=== PATIENT | male | born 1960 | race Caucasian/White ===

== ENCOUNTER 2019-09-01 10:14 | Inpatient (IN) | payer BC ==
--- NOTE | 2019-09-01 10:36 | PDOC ---
History of Present Illness - General Chief Complaint: Respiratory Stated Complaint: SHORT OF BREATH Time Seen by Provider: 09/01/19 10:26 History Source: Patient Exam Limitations: No Limitations - History of Present Illness Initial Comments: 59 year old male with PMH HTN, HLD, nicotine use, obesity presented to ED for increasing SOB, ESTRADA x2 weeks. Pt reported he walks a lot at work and over the last two weeks he feels short of breath while walking uphill or up stairs. He also reported increasing pedal edema and abdominal distension since yesterday. He denied chest pain, palpitations, back pain, abdominal pain, lightheadedness, syncope, fever, productive cough. 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 ROS General: denied fever, chills, generalized weakness. HEENT: denied sore throat, rhinorrhea, ear pain. Cardiovascular: denied chest pain, palpitations, syncope, diaphoresis. Respiratory: admitted to shortness of breath, ESTRADA. denied cough, sputum production, hemoptysis. Gastrointestinal: denied abdominal pain, nausea, vomiting, diarrhea, constipation, blood in stool. Genitourinary: denied dysuria, increased urinary frequency, hematuria, urinary incontinence, flank pain. Back: denied back pain. Musculoskeletal: denied joint pain, muscle pain, joint swelling. Neurological: denied headache, dizziness, numbness, tingling, weakness. Integumentary: denied rash, laceration, abrasion. Hematologic/Lymphatic: denied bruising or bleeding. PE Constitutional: Well-nourished, Well-developed, appearing stated age. HEENT: head is normocephalic, atraumatic. EOMI. PERRLA. Neck: supple. Full ROM. Cardiovascular: regular heart rhythm. no murmurs. no pericardial friction rub. Respiratory: clear to auscultation bilaterally, but decreased breath sounds on the right. no crackles, rhonchi or wheezing. no stridor. Gastrointestinal: soft, nontender. normal bowel sounds. no rebound, guarding, masses. Extremities: peripheral pulses intact. nonpitting edema to bilateral feet. Neurological: CN 2-12 grossly intact. moves all four extremities. Psych: awake, alert, oriented x3. follows commands. answers questions appropriately. Past History - Past Medical History Allergies/Adverse Reactions: Allergies Allergy/AdvReac Type Severity Reaction Status Date / Time No Known Allergies Allergy Unverified 09/01/19 10:22 Home Medications: Ambulatory Orders Atorvastatin Ca [Lipitor] 40 mg PO DAILY 09/01/19 Lisinopril 10 mg PO DAILY 09/01/19 Metformin HCl [Glucophage] 1,000 mg PO BID 09/01/19 Metoprolol Succinate [Toprol Xl] 25 mg PO DAILY 09/01/19 ED Treatment Course - LABORATORY CBC & Chemistry Diagram: 09/01/19 11:00 09/01/19 11:00 - RADIOLOGY Radiology Studies Ordered: Category Date Time Status CHEST PA & LAT [RAD] Stat Radiology 09/01/19 10:32 Ordered Medical Decision Making - Medical Decision Making 59 year old male with above PMH presented to ED for increased SOB/ESTRADA x2 weeks. Initial Vital Signs Temp Pulse Resp BP Pulse Ox 98.3 F 77 22 H 199/123 H 91 L 09/01/19 10:20 09/01/19 10:20 09/01/19 10:20 09/01/19 10:20 09/01/19 10:20 Afebrile. No tachycardia. Tachypnea. Hypertensive. Hypoxia on room air. -Pt returned to 97% on 3L nasal cannula Labs ordered: CBC, CMP, BNP Imaging ordered: CXR, duplex US bilateral LE Medications ordered: ASA 162 mg PO chew once EKG performed at 1051: rate 68, regular rhythm, normal axis, normal intervals, QTC 459, flipped Ts laterally, flat T inferiorly. -No prior to compare 09/01/19 11:37 CXR report: Name: NAGA KAHN DEPARTMENT OF RADIOLOGY Phys: Macey Ruiz RESIDENT : [id number] Age: 59 Sex: M [facility] Acct: [id number] Loc: [address] Exam Date: 09/01/19 Status: [place] [address] Unit Number: [id number] EXAM #: TYPE/EXAM: RESULT: [id number] RAD/CHEST PA LAT Chest: Shortness of breath. Fluid overload. 2 views the chest reveal a weak inspiration with some congestive changes, fluid in the horizontal fissure and bibasilar atelectatic/ infiltrative findings. There is a prominent mediastinum. There are degenerative changes with wedging. Correlation recommended. Reported By: Yfn Ortega MD 09/01/19 1117 Vital Signs Temperature 98.3 F 09/01/19 10:20 Pulse Rate 68 09/01/19 11:30 Respiratory Rate 28 H 09/01/19 11:30 Blood Pressure 176/140 H 09/01/19 11:30 O2 Sat by Pulse Oximetry (%) 98 09/01/19 11:30 Hypertension improved, but still high. Laboratory Last Values WBC 7.7 K/mm3 (4.0-10.8) 09/01/19 11:00 RBC 4.17 M/mm3 (4.00-5.60) 09/01/19 11:00 Hgb 12.9 GM/dl (11.7-16.9) 09/01/19 11:00 Hct 40.0 % (35.4-49) 09/01/19 11:00 MCV 96.1 fl (80-96) H 09/01/19 11:00 MCH 31.0 pg (25.7-33.7) 09/01/19 11:00 MCHC 32.3 g/dl (32.0-35.9) 09/01/19 11:00 RDW 15.2 % (11.9-15.9) 09/01/19 11:00 Plt Count 291 K/MM3 (134-434) 09/01/19 11:00 MPV 7.9 fl (7.5-11.1) 09/01/19 11:00 Absolute Neuts (auto) 5.5 K/mm3 09/01/19 11:00 Neutrophils % 70.3 % (42.8-82.8) 09/01/19 11:00 Lymphocytes % 19.9 % (8-40) 09/01/19 11:00 Monocytes % 8.0 % (3.8-10.2) 09/01/19 11:00 Eosinophils % 1.4 % (0-4.5) 09/01/19 11:00 Basophils % 0.4 % (0-2.0) 09/01/19 11:00 Sodium 138 mmol/L (136-145) 09/01/19 11:00 Potassium 4.3 mmol/L (3.5-5.1) 09/01/19 11:00 Chloride 104 mmol/L (98-107) 09/01/19 11:00 Carbon Dioxide 27 mmol/L (21-32) 09/01/19 11:00 Anion Gap 7 MMOL/L (8-16) L 09/01/19 11:00 BUN 35.0 mg/dl (7-18) H 09/01/19 11:00 Creatinine 1.2 mg/dl (0.55-1.3) 09/01/19 11:00 Est GFR (CKD-EPI)AfAm 76.25 09/01/19 11:00 Est GFR (CKD-EPI)NonAf 65.79 09/01/19 11:00 Random Glucose 118 mg/dl (74-106) H 09/01/19 11:00 Calcium 9.0 mg/dl (8.5-10) 09/01/19 11:00 Total Bilirubin 0.6 mg/dl (0.2-1) 09/01/19 11:00 AST 27 U/L (15-37) 09/01/19 11:00 ALT 29 U/L (13-61) 09/01/19 11:00 Alkaline Phosphatase 73 U/L (45-117) 09/01/19 11:00 Creatine Kinase 222 U/L (26-308) 09/01/19 11:00 Troponin I 0.03 ng/ml (0.00-0.05) 09/01/19 11:00 Total Protein 7.3 g/dl (6.4-8.2) 09/01/19 11:00 Albumin 3.2 g/dl (3.4-5.0) L 09/01/19 11:00 Medications ordered: Nitro 0.4 SL once, duoneb x1 -Will give Lasix after repeating BP 09/01/19 12:03 Results explained to patient, advised to be admitted for new onset-CHF. Pt agreed with plan for care. PCP Kaitlin lucero, covered by Dr. Felix. 09/01/19 12:[address] Felix, who agreed with plan for care he advised giving Lasix 40 mg IV once if BP tolerates Nitro. He requested Dr. Alan Cardiology consult. Pending admission. 09/01/19 13:[address] Leoncio Huizar [facility], who reported he prefers the pt to be at [facility]. Will update Dr. Felix. 09/01/19 15:52 US report negative for bilateral DVT. Discharge - Discharge Information Problems reviewed: Yes Clinical Impression/Diagnosis: New onset of congestive heart failure, ESTRADA (dyspnea on exertion), ST segment changes on electrocardiogram Condition: Guarded - Admission Yes - Follow up/Referral Referrals: Clarissa Madrigal MD [Primary Care Provider] - - Patient Discharge Instructions - Post Discharge Activity
[2019-09-01 11:24] LABS: BASO % 0.4 % (0-2.0); EOS % 1.4 % (0-4.5); HEMOGLOBIN 12.9 GM/dl (11.7-16.9); LYMPH % 19.9 % (8-40); MCHC 32.3 g/dl (32.0-35.9); MEAN CELL VOLUME 96.1 fl (80-96); MEAN PLT VOLUME 7.9 fl (7.5-11.1); NEUT % 70.3 % (42.8-82.8); PLATELET COUNT 291 K/MM3 (134-434); RBC 4.17 M/mm3 (4.00-5.60); RDW 15.2 % (11.9-15.9); WHITE BLOOD COUNT 7.7 K/mm3 (4.0-10.8)
[2019-09-01 11:32] LABS: ALBUMIN 3.2 g/dl (3.4-5.0); BILIRUBIN,TOTAL 0.6 mg/dl (0.2-1); CREATININE 1.2 mg/dl (0.55-1.3); POTASSIUM 4.3 mmol/L (3.5-5.1); TOT PROT 7.3 g/dl (6.4-8.2)
[2019-09-01] MEDS ORDERED: ASPIRIN 81 MG CHEWABLE TABLETS PO ONE (11:34)
--- NOTE | 2019-09-01 11:34 | PDOC ---
Attending Attestation - Resident Resident Name: JosephMarquitaa - ED Attending Attestation I have performed the following: I have examined & evaluated the patient, The case was reviewed & discussed with the resident, I agree w/resident's findings & plan - HPI HPI: 09/01/19 11:30 59-year-old male history of hypertension hyperlipidemia obesity and tobacco use here today complaining of exertional dyspnea and shortness of breath for the last 3 to 4 days. Patient states he did recently have an echo that showed decreased EF however is uncertain of the severity. He follows with Dr. 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 States that his shortness of breath is worse with walking and going upstairs. He denies any chest pain or chest pressure. No history of PE or DVT. No cough fevers chills or leg pain. States that he does have to prop himself up on several pillows to sleep at night - Physicial Exam PE: 09/01/19 11:33 Patient is awake alert is hypoxic on room air appears pale lungs are with decreased breath sounds on the right up to the midlung field posteriorly. There is faint crackles and decreased airflow at the left base. Heart is regular with any murmurs rubs or gallops. Abdomen is soft nontender obese extremities are warm and well-perfused there is bilateral nonpitting edema 2+ DP PT pulses bilaterally. - Medical Decision Making 09/01/19 11:33 Differential diagnosis includes CHF exacerbation, anemia, renal failure, pleural effusion, or other infectious cause. COPD plan chest x-ray EKG troponin BNP due to suspected CHF exacerbation and possible pleural effusion patient will likely require admission to telemetry will discuss with Dr. GARDNER 09/01/19 13:41 pt with elevated BNP. congestive changes on cxr. ekg with TWI v4 - v6. I, AVL. no old EKG for comparison. will require admission. given ntg for elevated bp, chf. will liklely require lasix. aspirin. d/w dr conner for admission. 09/01/19 15:52 pt improved with nitro, bp improved. will given lasix 20 ivp, doppler legs negative. BNP elevated. trop negative. Heart Score/ECG Review #1 ECG reviewed & interpreted by me at: 15:53 General ECG Interpretation: Sinus Rhythm, Normal Rate, Normal Intervals Compared to previous ECG there are: Other (TWI v5/ v6)
[2019-09-01] MEDS ORDERED: ALBUTEROL SO4 2.5/IPRATROPIUM 0.5 INH SOL 3 ML VIAL.NEB. NEB ONE ×2 (11:48→12:22)
[2019-09-01] MEDS ORDERED: NITROGLYCERIN SUBLINGUAL 1/200 0.3 MG BTL SL ONE (11:48)
[2019-09-01] MEDS ORDERED: NITROGLYCERIN SUBLINGUAL 1/150 0.4 MG TAB ONE (12:21)
[2019-09-01] MEDS ORDERED: NITROGLYCERIN SUBLINGUAL 1/150 0.4 MG TAB SL ONE (12:21)
[2019-09-01] MEDS ORDERED: ASPIRIN 81 MG CHEWABLE TABLETS ONE (12:22)
[2019-09-01] MEDS ORDERED: LISINOPRIL 10 MG TABLET (FP) PO SCH (13:45)
[2019-09-01] MEDS: metoPROLOL SUCCINATE 25 MG TAB.SR.24H (FP) PO SCH (14:15)
[2019-09-01] MEDS: FUROSEMIDE 40 MG/4 ML INJECTABLE VIAL IVPUSH SCH (14:15)
[2019-09-01] MEDS ORDERED: FUROSEMIDE 40 MG/4 ML INJECTABLE VIAL ONE (14:15)
[2019-09-01] MEDS ORDERED: metoPROLOL SUCCINATE 25 MG TAB.SR.24H (FP) ONE (14:16)
[2019-09-01] MEDS ORDERED: LISINOPRIL 5 MG TABLET (FP) ONE (14:16)
--- NOTE | 2019-09-01 16:23 | CON.PULM ---
Consult Consult Specialty:: PULMONARY Referred by:: PMD Reason for Consultation:: SOB - History of Present Illness Chief Complaint: SOB History of Present Illness: 59 year old male with PMH HTN, HLD,DM2, nicotine use, obesity presents to ED for increasing SOB, ESTRADA x2 weeks. Pt reported he walks a lot at work and over the last two weeks he feels short of breath while walking uphill or up stairs. He also reported increasing pedal edema and abdominal distension since yesterday. He denied chest pain, palpitations, back pain, abdominal pain, lightheadedness, syncope, fever, productive cough. 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 No: Deep Vein Thrombosis, [place] Pulmonary: Yes: COPD. No: Asthma Gastrointestinal: No: Ascites Hepatobiliary: No: Cirrhosis Renal/: No: Renal Failure Heme/Onc: No: Anemia Endocrine: Yes: Diabetes Insipidus - Alcohol/Substance Use Hx Alcohol Use: Yes (OCCASIONAL) - Smoking History Smoking history: Former smoker Have you smoked in the past 12 months: Yes If you are a former smoker, when did you quit?: MAY 2019 Home Medications - Allergies Allergies/Adverse Reactions: Allergies Allergy/AdvReac Type Severity Reaction Status Date / Time No Known Allergies Allergy Unverified 09/01/19 10:22 - Home Medications Home Medications: Ambulatory Orders Atorvastatin Ca [Lipitor] 40 mg PO DAILY 09/01/19 Lisinopril 10 mg PO DAILY 09/01/19 Metformin HCl [Glucophage] 1,000 mg PO BID 09/01/19 Metoprolol Succinate [Toprol Xl] 25 mg PO DAILY 09/01/19 Family Medical History Family History: Unremarkable Review of Systems - Review of Systems Constitutional: denies: Fever Eyes: denies: Blurred Vision HENT: denies: Difficult Swallowing Neck: denies: Decreased ROM Cardiovascular: reports: Shortness of Breath. denies: Chest Pain, Palpitations Respiratory: reports: Cough, Exercise Intolerance, Orthopnea, SOB on Exertion, Wheezing, Other. denies: Hemoptysis Gastrointestinal: denies: Abdominal Pain Genitourinary: denies: Burning Breasts: reports: No Symptoms Reported Musculoskeletal: reports: No Symptoms Physical Exam Vital Sings: Vital Signs Temperature 98.3 F 09/01/19 10:20 Pulse Rate 72 09/01/19 13:00 Respiratory Rate 22 H 09/01/19 13:00 Blood Pressure 170/152 H 09/01/19 13:00 O2 Sat by Pulse Oximetry (%) 96 09/01/19 13:00 Constitutional: Yes: Calm Eyes: Yes: EOM Intact HENT: Yes: Normocephalic Neck: Yes: Trachea Midline Cardiovascular: Yes: Regular Rate and Rhythm, S1, S2 Respiratory: Yes: Diminished, Dullness Gastrointestinal: Yes: Normal Bowel Sounds, Abdomen, Obese Edema: LLE: 2+, RLE: 2+ Neurological: Yes: Alert Labs: CBC, BMP 09/01/19 11:00 09/01/19 11:00 reviewed all meds Imaging - Results Chest X-ray: Report Reviewed, Image Reviewed Ultrasound: Report Reviewed Problem List - Problems (1) Diabetes Code(s): E11.9 - TYPE 2 DIABETES MELLITUS WITHOUT COMPLICATIONS (2) ESTRADA (dyspnea on exertion) Code(s): R06.09 - OTHER FORMS OF DYSPNEA (3) New onset of congestive heart failure Code(s): I50.9 - HEART FAILURE, UNSPECIFIED (4) ST segment changes on electrocardiogram Code(s): R94.31 - ABNORMAL ELECTROCARDIOGRAM [ECG] [EKG] (5) Hypertensive urgency Code(s): I16.0 - HYPERTENSIVE URGENCY (6) Hyperlipidemia Code(s): E78.5 - HYPERLIPIDEMIA, UNSPECIFIED Assessment/Plan PROGRESSIVE CHF WITH HYPERTENSIVE URGENCY DM2/HDL LIKELY COPD 2/2 CIGARETTE SMOKING BUT NOT IN EXACERBATION O2/DIURETICS/BP CONTROL/TELE MONITORING/CARDIO CONSULT CONTINUE NIC/B-STAS CHECK ECHO SERIAL EKG'S AND ENZYMES IF CONDITION WORSENS WOULD TRANSFER TO [facility] Doris BALLARD MD
[2019-09-01 16:39] VITALS: BMI 35.6
[2019-09-01] MEDS: INSULIN SLIDING SCALE (NOVOLOG) 1 VIAL SQ SCH ×2 (16:52→21:33)
--- NOTE | 2019-09-01 17:53 | HP ---
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 No: Deep Vein Thrombosis, [place] Pulmonary: Yes: COPD. No: Asthma Gastrointestinal: No: Ascites Hepatobiliary: No: Cirrhosis Renal/: No: Renal Failure Heme/Onc: No: Anemia Endocrine: Yes: Diabetes Mellitus - Smoking History Smoking history: Former smoker Have you smoked in the past 12 months: Yes If you are a former smoker, when did you quit?: MAY 2019 - Alcohol/Substance Use Hx Alcohol Use: Yes (OCCASIONAL) Home Medications - Allergies Allergies/Adverse Reactions: Allergies Allergy/AdvReac Type Severity Reaction Status Date / Time No Known Allergies Allergy Unverified 09/01/19 10:22 - Home Medications Home Medications: Ambulatory Orders Atorvastatin Ca [Lipitor] 40 mg PO DAILY 09/01/19 Lisinopril 10 mg PO DAILY 09/01/19 Metformin HCl [Glucophage] 1,000 mg PO BID 09/01/19 Metoprolol Succinate [Toprol Xl] 25 mg PO DAILY 09/01/19 Review of Systems - Review of Systems Cardiovascular: reports: Chest Pain, Shortness of Breath Respiratory: reports: SOB, SOB on Exertion Gastrointestinal: reports: No Symptoms Genitourinary: reports: No Symptoms Breasts: reports: No Symptoms Reported Musculoskeletal: reports: No Symptoms Neurological: reports: No Symptoms Physical Examination Vital Signs: Vital Signs Temperature 97.7 F 09/01/19 16:27 Pulse Rate 64 09/01/19 16:27 Respiratory Rate 20 09/01/19 16:27 Blood Pressure 161/89 09/01/19 16:27 O2 Sat by Pulse Oximetry (%) 99 09/01/19 16:27 Cardiovascular: Yes: Regular Rate and Rhythm Respiratory: Yes: On Nasal O2, Rales Gastrointestinal: Yes: Normal Bowel Sounds, Soft. No: Tenderness Edema: Yes Labs: CBC, BMP 09/01/19 11:00 09/01/19 11:00 Imaging - Results X-ray: Report Reviewed Problem List - Problems (1) CHF (congestive heart failure) Assessment/Plan: -FOLLOW LABS,CXR -LASIX IV BID -CARDIOLOGY CONSULT Code(s): I50.9 - HEART FAILURE, UNSPECIFIED (2) ESTRADA (dyspnea on exertion) Assessment/Plan: ABOVE STRESS TEST PRIOR TO DC CT CHEST PULM CONSULT Code(s): R06.09 - OTHER FORMS OF DYSPNEA (3) Diabetes Assessment/Plan: BGM A1C Code(s): E11.9 - TYPE 2 DIABETES MELLITUS WITHOUT COMPLICATIONS (4) Hypertensive urgency Assessment/Plan: ADJUST MEDS AND MONITOR Code(s): I16.0 - HYPERTENSIVE URGENCY
[2019-09-01] MEDS: HEPARIN NA (PORCINE) 5,000 UNITS/ML 1ML VIAL SQ SCH (18:33)
[2019-09-01] MEDS: ATORVASTATIN CA 40 MG TABLET (FP) PO SCH (21:33)
[2019-09-02] MEDS: HEPARIN NA (PORCINE) 5,000 UNITS/ML 1ML VIAL SQ SCH ×3 (01:27→18:09)
[2019-09-02] MEDS: FUROSEMIDE 40 MG/4 ML INJECTABLE VIAL IVPUSH SCH ×2 (06:18→13:29)
[2019-09-02] MEDS: INSULIN SLIDING SCALE (NOVOLOG) 1 VIAL SQ SCH ×4 (06:18→21:16)
--- NOTE | 2019-09-02 07:27 | PN ---
Progress Note, Physician - Current Medication List Current Medications: Active Medications Atorvastatin Calcium (Lipitor -) 40 mg PO HS RAISA Last Admin: 09/01/19 21:33 Dose: 40 mg Furosemide (Lasix Injection -) 40 mg IVPUSH BIDLASIX RAISA Last Admin: 09/02/19 06:18 Dose: 40 mg Heparin Sodium (Porcine) (Heparin -) 5,000 unit SQ Q8H-IV RAISA Last Admin: 09/02/19 01:27 Dose: 5,000 unit Insulin Aspart (Novolog Vial Sliding Scale -) 1 vial SQ ACHS [facility]; Protocol Last Admin: 09/02/19 06:18 Dose: Not Given Lisinopril (Prinivil) 20 mg PO DAILY [facility] Metoprolol Succinate (Toprol Xl -) 25 mg PO DAILY [facility] Last Admin: 09/01/19 14:15 Dose: 25 mg - Objective Vital Signs: Vital Signs Temperature 98.3 F 09/02/19 05:00 Pulse Rate 59 L 09/02/19 05:00 Respiratory Rate 20 09/02/19 05:00 Blood Pressure 140/80 09/02/19 05:00 O2 Sat by Pulse Oximetry (%) 99 09/02/19 05:00 Cardiovascular: Yes: S1, S2 Respiratory: Yes: Diminished, On Nasal O2, Rales Gastrointestinal: Yes: Normal Bowel Sounds, Soft Edema: LLE: Trace, RLE: Trace Labs: CBC, BMP 09/01/19 11:00 09/01/19 11:00 Problem List - Problems (1) CHF (congestive heart failure) Assessment/Plan: -FOLLOW LABS CT NOTED--EFFUSION -LASIX IV BID -CARDIOLOGY CONSULT -ECHO Code(s): I50.9 - HEART FAILURE, UNSPECIFIED (2) ESTRADA (dyspnea on exertion) Assessment/Plan: ABOVE STRESS TEST PRIOR TO DC CT CHEST--EFFUSION-ATELECTASIS NEBS PULM CONSULT Code(s): R06.09 - OTHER FORMS OF DYSPNEA (3) Diabetes Assessment/Plan: BGM A1C Code(s): E11.9 - TYPE 2 DIABETES MELLITUS WITHOUT COMPLICATIONS (4) Hypertensive urgency Assessment/Plan: ADJUST MEDS AND MONITOR Selected Entries 09/01/19 09/01/19 09/01/19 10:20 16:27 18:41 Blood Pressure 199/123 H 161/89 143/78 09/02/19 09/02/19 05:00 07:54 Blood Pressure 140/80 130/76 Code(s): I16.0 - HYPERTENSIVE URGENCY (5) Pleural effusion Assessment/Plan: DIURETICS FOLLOW UP IMAGING Code(s): J90 - PLEURAL EFFUSION, NOT ELSEWHERE CLASSIFIED
[2019-09-02 08:29] LABS: EOS % 2.9 % (0-4.5); HEMATOCRIT 34.7 % (35.4-49); LYMPH % 16.9 % (8-40); MCH 32.8 pg (25.7-33.7); MCHC 34.6 g/dl (32.0-35.9); MEAN CELL VOLUME 94.9 fl (80-96); MEAN PLT VOLUME 8.2 fl (7.5-11.1); MONO % 9.8 % (3.8-10.2); NEUT % 69.4 % (42.8-82.8); PLATELET COUNT 248 K/MM3 (134-434); RBC 3.66 M/mm3 (4.00-5.60); RDW 14.8 % (11.9-15.9); WHITE BLOOD COUNT 8.3 K/mm3 (4.0-10.8)
[2019-09-02 08:33] LABS: ALBUMIN 2.9 g/dl (3.4-5.0); BILIRUBIN,TOTAL 0.8 mg/dl (0.2-1); CALCIUM 8.9 mg/dl (8.5-10); CREATININE 1.4 mg/dl (0.55-1.3); MAGNESIUM 1.7 mg/dL (1.8-2.4); POTASSIUM 4.8 mmol/L (3.5-5.1); TOT PROT 6.9 g/dl (6.4-8.2)
[2019-09-02] MEDS: LISINOPRIL 20 MG TABLET (FP) PO SCH (09:22)
[2019-09-02] MEDS: metoPROLOL SUCCINATE 25 MG TAB.SR.24H (FP) PO SCH (09:22)
--- NOTE | 2019-09-02 10:58 | PN ---
Progress Note (short form) - Note Progress Note: PULMONARY SUBJECTIVE IMPROVEMENT 130/76 AFEBRILE HR 60 ANICTERIC DIMINISHED BREATH SOUNDS AT BASES S1S2 BS+ LESS EDEMA LABS/MEDS/NOTES/IMAGES REVIEWED - Problems (1) Diabetes Code(s): E11.9 - TYPE 2 DIABETES MELLITUS WITHOUT COMPLICATIONS (2) ESTRADA (dyspnea on exertion) Code(s): R06.09 - OTHER FORMS OF DYSPNEA (3) New onset of congestive heart failure Code(s): I50.9 - HEART FAILURE, UNSPECIFIED (4) ST segment changes on electrocardiogram Code(s): R94.31 - ABNORMAL ELECTROCARDIOGRAM [ECG] [EKG] (5) Hypertensive urgency Code(s): I16.0 - HYPERTENSIVE URGENCY (6) Hyperlipidemia Code(s): E78.5 - HYPERLIPIDEMIA, UNSPECIFIED Assessment/Plan PROGRESSIVE CHF WITH HYPERTENSIVE URGENCY RESOLVING DM2/HDL LIKELY COPD 2/2 CIGARETTE SMOKING BUT NOT IN EXACERBATION O2/DIURETICS/BP CONTROL/TELE MONITORING/CARDIO CONSULT CONTINUE NIC/B-STAS CHECK ECHO SERIAL EKG'S AND ENZYMES R NELLIE MOLINA Problem List - Problems (1) Diabetes Code(s): E11.9 - TYPE 2 DIABETES MELLITUS WITHOUT COMPLICATIONS (2) ESTRADA (dyspnea on exertion) Code(s): R06.09 - OTHER FORMS OF DYSPNEA (3) New onset of congestive heart failure Code(s): I50.9 - HEART FAILURE, UNSPECIFIED (4) ST segment changes on electrocardiogram Code(s): R94.31 - ABNORMAL ELECTROCARDIOGRAM [ECG] [EKG] (5) Hypertensive urgency Code(s): I16.0 - HYPERTENSIVE URGENCY (6) Hyperlipidemia Code(s): E78.5 - HYPERLIPIDEMIA, UNSPECIFIED
[2019-09-02] MEDS: ALBUTEROL SO4 2.5/IPRATROPIUM 0.5 INH SOL 3 ML VIAL.NEB. NEB SCH ×3 (12:00→19:56)
--- NOTE | 2019-09-02 13:35 | EKG ---
Test Reason : Blood Pressure : / mmHG Vent. Rate : 058 BPM Atrial Rate : 058 BPM P-R Int : 174 ms QRS Dur : 104 ms QT Int : 418 ms P-R-T Axes : 059 023 215 degrees QTc Int : 410 ms SINUS BRADYCARDIA NONSPECIFIC ST ABNORMALITY ABNORMAL ECG Confirmed by ANIKA GANDHI MD ([id number]) on 09/02/2019 1:34:39 PM Referred By: MD HARVEY Confirmed By:ANIKA GANDHI MD
--- NOTE | 2019-09-02 13:38 | EKG ---
Test Reason : Blood Pressure : / mmHG Vent. Rate : 068 BPM Atrial Rate : 068 BPM P-R Int : 172 ms QRS Dur : 104 ms QT Int : 432 ms P-R-T Axes : 064 030 178 degrees QTc Int : 459 ms NORMAL SINUS RHYTHM NONSPECIFIC ST ABNORMALITY ABNORMAL ECG NO PREVIOUS ECGS AVAILABLE Confirmed by ANIKA GANDHI MD ([id number]) on 09/02/2019 1:37:55 PM Referred By: LOUANN MOHR Confirmed By:ANIKA GANDHI MD
--- NOTE | 2019-09-02 14:54 | ECHO ---
Name: NAGA KAHN Exam:Adult Echocardiogram Study Date: 09/02/2019 02:15 PM Age: 59 yrs Reason For Study: CHF Height: 68 in Weight: 234 lb BSA: 2.2 m2 MMode/2D Measurements & Calculations IVSd: 1.0 cm Ao root diam: 3.3 cm LVIDd: 5.3 cm LA dimension: 3.2 cm LVIDs: 3.9 cm LVPWd: 0.90 cm EDV(Teich): 136.6 ml LVOT diam: 2.0 cm ESV(Teich): 67.1 ml Doppler Measurements & Calculations MV E max anita: 87.0 cm/sec MV A max anita: 48.6 cm/sec MV dec slope: 328.8 cm/sec2 MV E/A: 1.8 Ao V2 max: 117.2 cm/sec LV V1 max P.4 mmHg Ao max P.5 mmHg LV V1 max: 92.4 cm/sec YASMANY(V,D): 2.5 cm2 MR max anita: 277.1 cm/sec PA V2 max: 79.8 cm/sec MR max P.7 mmHg PA max P.5 mmHg PI end-d anita: 107.3 cm/sec Procedure The study was technically difficult with many images being suboptimal in quality. Left Ventricle Consider repeat study with contrast as outpatient for better assessment of wall motion and overall LV EF. Although wall motion is not well visualized, left ventricular systolic function appears grossly zachery l in the short axis view. Regional wall motion abnormalities cannot be excluded due to limited visualization. Right Ventricle The right ventricle is grossly normal size. The right ventricular systolic function is grossly normal . Atria Normal left and right atrial size and function. Mitral Valve The mitral valve is normal in structure and function. There is no mitral valve stenosis. There is mil d mitral regurgitation. Tricuspid Valve The tricuspid valve is normal in structure and function. There is mild tricuspid regurgitation. Aortic Valve There is moderate aortic sclerosis.;. No hemodynamically significant valvular aortic stenosis. No aor tic regurgitation is present. Pulmonic Valve The pulmonic valve is not well seen, but is grossly normal. There is no pulmonic valvular stenosis. T here is no pulmonic valvular regurgitation. Great Vessels The aortic root is normal size. Pericardium/Pleura There is no pericardial effusion. Interpretation Summary The study was technically difficult with many images being suboptimal in quality. Regional wall motion abnormalities cannot be excluded due to limited visualization. Although wall motion is not well visualized, left ventricular systolic function appears grossly zachery l in the short axis view. Consider repeat study with contrast as outpatient for better assessment of wall motion and overall LV EF There is mild mitral regurgitation. There is mild tricuspid regurgitation. There is moderate aortic sclerosis.; There is no pericardial effusion. MD Ruiz *Luis Fernando 09/02/2019 02:54 PM
--- NOTE | 2019-09-02 15:26 | CON.CARD ---
Consult Consult Specialty:: Cardiology Reason for Consultation:: CHF - History of Present Illness Chief Complaint: ESTRADA. SOB History of Present Illness: This is a 59 year old male with a PMH of smoking (quit a few months ago), HTN, DM, and HLD. For the past several weeks he has been noticing progressive ESTRADA. He has also noticed increasing lower extremity swelling. No chest pain. EKG Sinus bradycardia at 58 BPM with normal intervals, normal axis, and NSSTTW changes. Echocardiogam 09/02/19: TDS LV function appears grossly normal Normal right ventricular size and function Mild MR Mild TR 09/02/19 Significantly improving with diuretics - Past Medical History MEDICAL RECORD ADMINISTRATOR: No: Alzheimer's Cardio/Vascular: Yes: CHF, HTN, Hyperlipdemia. No: Deep Vein Thrombosis, ID Pulmonary: Yes: COPD. No: Asthma Gastrointestinal: No: Ascites Hepatobiliary: No: Cirrhosis Renal/: No: Renal Failure Endocrine: Yes: Diabetes Mellitus - Alcohol/Substance Use Hx Alcohol Use: Yes (OCCASIONAL) - Smoking History Smoking history: Former smoker Have you smoked in the past 12 months: Yes If you are a former smoker, when did you quit?: MAY 2019 Home Medications - Allergies Allergies/Adverse Reactions: Allergies Allergy/AdvReac Type Severity Reaction Status Date / Time No Known Allergies Allergy Unverified 09/01/19 10:22 - Home Medications Home Medications: Ambulatory Orders Atorvastatin Ca [Lipitor] 40 mg PO DAILY 09/01/19 Lisinopril 10 mg PO DAILY 09/01/19 Metformin HCl [Glucophage] 1,000 mg PO BID 09/01/19 Metoprolol Succinate [Toprol Xl] 25 mg PO DAILY 09/01/19 Vital Signs: Vital Signs Temperature 98.8 F 09/02/19 14:18 Pulse Rate 60 09/02/19 14:18 Respiratory Rate 19 09/02/19 14:18 Blood Pressure 140/76 09/02/19 14:18 O2 Sat by Pulse Oximetry (%) 98 09/02/19 07:54 Constitutional: Yes: No Distress Eyes: Yes: WNL HENT: Yes: WNL Neck: Yes: WNL Respiratory: Yes: Rales (Minimal basilar rales) Gastrointestinal: Yes: Soft Cardiovascular: Yes: Regular Rate and Rhythm Heart Sounds: Yes: S1, S2 Edema: Yes Edema: LLE: Trace, RLE: Trace Neurological: Yes: Alert, Oriented - Other Data Labs, Other Data: CBC, BMP 09/02/19 07:30 09/02/19 07:30 Troponin, BNP 09/01/19 09/02/19 09/02/19 16:46 07:30 07:30 Troponin I 0.03 Cancelled 0.03 Troponin, BNP 09/01/19 09/02/19 09/02/19 16:46 07:30 07:30 Troponin I 0.03 Cancelled 0.03 Assessment/Plan 59 year old male with a PMH of smoking (quit a few months ago), HTN, DM, and HLD. For the past several weeks he has been noticing progressive ESTRADA. He has also noticed increasing lower extremity swelling. No chest pain. EKG Sinus bradycardia at 58 BPM with normal intervals, normal axis, and NSSTTW changes Troponin 0.03 x2 Echocardiogam 09/02/19: TDS LV function appears grossly normal Normal right ventricular size and function Mild MR Mild TR 09/02/19 Significantly improving with diuretics CHF Acute on chronic (likely diastolic) Lasix 40 mg IVSS BID Follow I's/O's/Wt's/Lytes BNP 4896 Continue Metoprolol XL 25 mg pod daily Continue Lisinopril 20 mg PO daily Would switch to Lasix 40 PO daily tomorrow Needs Ischemia work-up after diuresis, such as a nuclear stress test and cardiology follow up. HLD Continue atorvastatin 40 mg PO Home Medication List Medication Instructions Recorded Confirmed Type Atorvastatin Ca [Lipitor] 40 mg PO DAILY 09/01/19 09/01/19 History Lisinopril 10 mg PO DAILY 09/01/19 09/01/19 History Metformin HCl [Glucophage] 1,000 mg PO BID 09/01/19 09/01/19 History Metoprolol Succinate [Toprol Xl] 25 mg PO DAILY 09/01/19 09/01/19 History Active Medications Generic Name Dose Route Start Last Admin Trade Name Freq PRN Reason Stop Dose Admin Albuterol/Ipratropium 1 amp 09/02/19 12:00 09/02/19 12:00 Duoneb - NEB 1 amp RQID RAISA Administration Atorvastatin Calcium 40 mg 09/01/19 22:00 09/01/19 21:33 Lipitor - PO 40 mg HS RAISA Administration Furosemide 40 mg 09/01/19 14:00 09/02/19 13:29 Lasix Injection - IVPUSH 40 mg BIDLASIX RAISA Administration Heparin Sodium (Porcine) 5,000 unit 09/01/19 18:00 09/02/19 09:22 Heparin - SQ 5,000 unit Q8H-IV RAISA Administration Insulin Aspart 1 vial 09/01/19 16:30 09/02/19 11:00 Novolog Vial Sliding Scale - SQ Not Given ACHS [facility] Protocol Lisinopril 20 mg 09/02/19 10:00 09/02/19 09:22 Prinivil PO 20 mg DAILY RAISA Administration Metoprolol Succinate 25 mg 09/01/19 13:30 09/02/19 09:22 Toprol Xl - PO 25 mg DAILY RAISA Administration
[2019-09-02] MEDS: ATORVASTATIN CA 40 MG TABLET (FP) PO SCH (21:11)
[2019-09-03] MEDS: HEPARIN NA (PORCINE) 5,000 UNITS/ML 1ML VIAL SQ SCH ×3 (01:26→18:25)
[2019-09-03] MEDS: FUROSEMIDE 40 MG/4 ML INJECTABLE VIAL IVPUSH SCH (06:03)
[2019-09-03] MEDS: INSULIN SLIDING SCALE (NOVOLOG) 1 VIAL SQ SCH ×4 (06:12→21:38)
--- NOTE | 2019-09-03 07:44 | PN ---
Progress Note, Physician History of Present Illness: PULMONARY ALERT,FEELING BETTER,SOB IMPROVING,STILL HYPOXIC ON RA O2 SAT 89% - Current Medication List Current Medications: Active Medications Albuterol/Ipratropium (Duoneb -) 1 amp NEB RQID [facility] Last Admin: 09/02/19 19:56 Dose: 1 amp Atorvastatin Calcium (Lipitor -) 40 mg PO HS [facility] Last Admin: 09/02/19 21:11 Dose: 40 mg Furosemide (Lasix Injection -) 40 mg IVPUSH BIDLASIX [facility] Last Admin: 09/03/19 06:03 Dose: 40 mg Heparin Sodium (Porcine) (Heparin -) 5,000 unit SQ Q8H-IV [facility] Last Admin: 09/03/19 01:26 Dose: 5,000 unit Insulin Aspart (Novolog Vial Sliding Scale -) 1 vial SQ ACHS [facility]; Protocol Last Admin: 09/03/19 06:12 Dose: Not Given Lisinopril (Prinivil) 20 mg PO DAILY [facility] Last Admin: 09/02/19 09:22 Dose: 20 mg Metoprolol Succinate (Toprol Xl -) 25 mg PO DAILY [facility] Last Admin: 09/02/19 09:22 Dose: 25 mg - Objective Vital Signs: Vital Signs Temperature 98.2 F 09/03/19 06:00 Pulse Rate 53 L 09/03/19 06:00 Respiratory Rate 19 09/03/19 06:00 Blood Pressure 162/85 09/03/19 06:00 O2 Sat by Pulse Oximetry (%) 100 09/02/19 22:00 Constitutional: Yes: Well Nourished, Calm Eyes: Yes: WNL HENT: Yes: WNL Neck: Yes: WNL Cardiovascular: Yes: Regular Rate and Rhythm, S1, S2 Respiratory: Yes: Rales (FEW BIBASILAR RALES) Gastrointestinal: Yes: Normal Bowel Sounds, Soft Extremities: Yes: WNL Edema: No - ....Imaging Cat Scan: Report Reviewed, Image Reviewed Assessment/Plan Problems (1) Diabetes Code(s): E11.9 - TYPE 2 DIABETES MELLITUS WITHOUT COMPLICATIONS (2) ESTRADA (dyspnea on exertion) Code(s): R06.09 - OTHER FORMS OF DYSPNEA (3) New onset of congestive heart failure Code(s): I50.9 - HEART FAILURE, UNSPECIFIED (4) ST segment changes on electrocardiogram Code(s): R94.31 - ABNORMAL ELECTROCARDIOGRAM [ECG] [EKG] (5) Hypertensive urgency Code(s): I16.0 - HYPERTENSIVE URGENCY (6) Hyperlipidemia Code(s): E78.5 - HYPERLIPIDEMIA, UNSPECIFIED Assessment/Plan CHF HYPERTENSIVE IMPROVED DM2 HDL LIKELY COPD SUSPECTED OSAS FELIZ O2 DIURETIC BP CONTROL CONTINUE NIC B-STAS OUTPATIENT SLEEP STUDIES PFTS OUTPATIENT MONITOR LYTES,RENAL FUNCTION DAILY WTS DR DONALDSON
--- NOTE | 2019-09-03 08:18 | PN ---
Progress Note, Physician Chief Complaint: ESTRADA Acute on Chronic CHF Exacerbation History of Present Illness: Previous notes and events reviewed awake and alert NAD patient states breathing better denies chest pain or SOB SpO2 89% on RA when placed on O2 NC increase up to 94% - Current Medication List Current Medications: Active Medications Albuterol/Ipratropium (Duoneb -) 1 amp NEB RQID [facility] Last Admin: 09/02/19 19:56 Dose: 1 amp Atorvastatin Calcium (Lipitor -) 40 mg PO HS [facility] Last Admin: 09/02/19 21:11 Dose: 40 mg Furosemide (Lasix Injection -) 40 mg IVPUSH BIDLASIX [facility] Last Admin: 09/03/19 06:03 Dose: 40 mg Heparin Sodium (Porcine) (Heparin -) 5,000 unit SQ Q8H-IV [facility] Last Admin: 09/03/19 01:26 Dose: 5,000 unit Insulin Aspart (Novolog Vial Sliding Scale -) 1 vial SQ ACHS [facility]; Protocol Last Admin: 09/03/19 06:12 Dose: Not Given Lisinopril (Prinivil) 20 mg PO DAILY [facility] Last Admin: 09/02/19 09:22 Dose: 20 mg Metoprolol Succinate (Toprol Xl -) 25 mg PO DAILY [facility] Last Admin: 09/02/19 09:22 Dose: 25 mg - Objective Vital Signs: Vital Signs Temperature 98.2 F 09/03/19 06:00 Pulse Rate 53 L 09/03/19 06:00 Respiratory Rate 19 09/03/19 06:00 Blood Pressure 162/85 09/03/19 06:00 O2 Sat by Pulse Oximetry (%) 100 09/02/19 22:00 Constitutional: Yes: No Distress, Calm Eyes: Yes: Conjunctiva Clear HENT: Yes: Atraumatic Cardiovascular: Yes: Regular Rate and Rhythm Respiratory: Yes: Regular, Diminished Gastrointestinal: Yes: Normal Bowel Sounds, Soft Musculoskeletal: Yes: Muscle Weakness Extremities: Yes: WNL Edema: Yes Edema: LLE: 1+, RLE: 1+ Neurological: Yes: Alert, Oriented Psychiatric: Yes: Alert, Oriented Problem List - Problems (1) CHF (congestive heart failure) Assessment/Plan: -Cardiology and Pulm on board -switch to PO Lasix -1L fluid restriction -low Na diet -Echo shows mild MR, mild tricuspid regurg, mod arotic sclerosis, no pericaridal effusion *consider repeat study with contrast as outpatient for better assessment of wall motion and overall LVEF* -Chest CT scan shows moderate bilateral pleural effusion with resultant bibasilar compressive atelectasis, mild concentric subcutaneous soft tissue stranding which may be on basis of fluid retention -BNP 4896.1 Code(s): I50.9 - HEART FAILURE, UNSPECIFIED (2) ESTRADA (dyspnea on exertion) Assessment/Plan: -Pulm on board -Bronchodilators -O2 via NC -keep SpO2 >90% -Chest CT scan shows moderate bilateral pleural effusion with resultant bibasilar compressive atelectasis, mild concentric subcutaneous soft tissue stranding which may be on basis of fluid retention Code(s): R06.09 - OTHER FORMS OF DYSPNEA (3) Diabetes Assessment/Plan: -BGM ACHS -ISS Code(s): E11.9 - TYPE 2 DIABETES MELLITUS WITHOUT COMPLICATIONS (4) Hyperlipidemia Assessment/Plan: -Atorvastatin Code(s): E78.5 - HYPERLIPIDEMIA, UNSPECIFIED (5) Hypertensive urgency Assessment/Plan: -Cardiology on board -BP trend improving -Lisinopril, Metoprolol -low Na diet Code(s): I16.0 - HYPERTENSIVE URGENCY (6) Pleural effusion Assessment/Plan: -Chest CT scan shows moderate bilateral pleural effusion with resultant bibasilar compressive atelectasis, mild concentric subcutaneous soft tissue stranding which may be on basis of fluid retention -Pulm on board -Lasix -keep SpO2 >90% -O2 via NC Code(s): J90 - PLEURAL EFFUSION, NOT ELSEWHERE CLASSIFIED Assessment/Plan see problem list dvt ppx
[2019-09-03 08:52] LABS: BASO % 0.7 % (0-2.0); EOS % 3.4 % (0-4.5); HEMATOCRIT 34.6 % (35.4-49); HEMOGLOBIN 11.4 GM/dl (11.7-16.9); LYMPH % 22.2 % (8-40); MCH 31.3 pg (25.7-33.7); MEAN CELL VOLUME 94.8 fl (80-96); MEAN PLT VOLUME 8.5 fl (7.5-11.1); MONO % 13.6 % (3.8-10.2); NEUT % 60.1 % (42.8-82.8); PLATELET COUNT 230 K/MM3 (134-434); RBC 3.65 M/mm3 (4.00-5.60); RDW 14.5 % (11.9-15.9); WHITE BLOOD COUNT 6.8 K/mm3 (4.0-10.8)
[2019-09-03 09:01] LABS: ALBUMIN 2.9 g/dl (3.4-5.0); BILIRUBIN,TOTAL 0.4 mg/dl (0.2-1); CALCIUM 8.9 mg/dl (8.5-10); CREATININE 1.4 mg/dl (0.55-1.3); POTASSIUM 4.3 mmol/L (3.5-5.1); TOT PROT 6.6 g/dl (6.4-8.2)
[2019-09-03] MEDS: FUROSEMIDE 40 MG TABLET (FP) PO SCH (09:30)
[2019-09-03] MEDS: ALBUTEROL SO4 2.5/IPRATROPIUM 0.5 INH SOL 3 ML VIAL.NEB. NEB SCH ×4 (09:30→21:04)
[2019-09-03] MEDS: LISINOPRIL 20 MG TABLET (FP) PO SCH (09:30)
[2019-09-03] MEDS: metoPROLOL SUCCINATE 25 MG TAB.SR.24H (FP) PO SCH (09:31)
[2019-09-03] MEDS: ATORVASTATIN CA 40 MG TABLET (FP) PO SCH (21:37)
[2019-09-04] MEDS: HEPARIN NA (PORCINE) 5,000 UNITS/ML 1ML VIAL SQ SCH ×3 (02:00→18:48)
[2019-09-04] MEDS: INSULIN SLIDING SCALE (NOVOLOG) 1 VIAL SQ SCH ×4 (07:18→21:32)
--- NOTE | 2019-09-04 07:43 | PN ---
Progress Note, Physician Chief Complaint: PULMONARY ALERT,FEELING BETTER,LESS DYSPNEIC,O2 SAT 98% ON NASAL CANNULA - Current Medication List Current Medications: Active Medications Albuterol/Ipratropium (Duoneb -) 1 amp NEB RQID [facility] Last Admin: 09/03/19 21:04 Dose: 1 amp Atorvastatin Calcium (Lipitor -) 40 mg PO HS [facility] Last Admin: 09/03/19 21:37 Dose: 40 mg Furosemide (Lasix -) 40 mg PO DAILY [facility] Last Admin: 09/03/19 09:30 Dose: 40 mg Heparin Sodium (Porcine) (Heparin -) 5,000 unit SQ Q8H-IV [facility] Last Admin: 09/04/19 02:00 Dose: 5,000 unit Insulin Aspart (Novolog Vial Sliding Scale -) 1 vial SQ ACHS [facility]; Protocol Last Admin: 09/04/19 07:18 Dose: Not Given Lisinopril (Prinivil) 20 mg PO DAILY [facility] Last Admin: 09/03/19 09:30 Dose: 20 mg Metoprolol Succinate (Toprol Xl -) 25 mg PO DAILY [facility] Last Admin: 09/03/19 09:31 Dose: 25 mg - Objective Vital Signs: Vital Signs Temperature 98.3 F 09/04/19 06:00 Pulse Rate 63 09/04/19 06:00 Respiratory Rate 18 09/04/19 06:00 Blood Pressure 156/87 09/04/19 06:00 O2 Sat by Pulse Oximetry (%) 100 09/04/19 06:00 Constitutional: Yes: Well Nourished, Calm Eyes: Yes: WNL HENT: Yes: WNL Neck: Yes: WNL Cardiovascular: Yes: Regular Rate and Rhythm, S2 Respiratory: Yes: Diminished Gastrointestinal: Yes: Normal Bowel Sounds, Soft Extremities: Yes: WNL Edema: Yes Labs: CBC, BMP Assessment/Plan Problems (1) Diabetes Code(s): E11.9 - TYPE 2 DIABETES MELLITUS WITHOUT COMPLICATIONS (2) ESTRADA (dyspnea on exertion) Code(s): R06.09 - OTHER FORMS OF DYSPNEA (3) New onset of congestive heart failure Code(s): I50.9 - HEART FAILURE, UNSPECIFIED (4) ST segment changes on electrocardiogram Code(s): R94.31 - ABNORMAL ELECTROCARDIOGRAM [ECG] [EKG] (5) Hypertensive urgency Code(s): I16.0 - HYPERTENSIVE URGENCY (6) Hyperlipidemia Code(s): E78.5 - HYPERLIPIDEMIA, UNSPECIFIED Assessment/Plan CHF HYPERTENSIVE URGENCY IMPROVED DM2 HDL LIKELY COPD SUSPECTED OSAS FELIZ O2 DIURETIC BP CONTROL CONTINUE NIC B-BLOCKERS OUTPATIENT SLEEP STUDIES PFTS OUTPATIENT MONITOR LYTES,RENAL FUNCTION DAILY WTS DR DONALDSON
--- NOTE | 2019-09-04 08:15 | PN ---
Progress Note, Physician Chief Complaint: ESTRADA Acute on Chronic CHF Exacerbation History of Present Illness: Previous notes and events reviewed awake and alert NAD patient states breathing better denies chest pain or SOB non-productive cough - Current Medication List Current Medications: Active Medications Albuterol/Ipratropium (Duoneb -) 1 amp NEB RQID [facility] Last Admin: 09/03/19 21:04 Dose: 1 amp Atorvastatin Calcium (Lipitor -) 40 mg PO HS [facility] Last Admin: 09/03/19 21:37 Dose: 40 mg Furosemide (Lasix -) 40 mg PO DAILY [facility] Last Admin: 09/03/19 09:30 Dose: 40 mg Heparin Sodium (Porcine) (Heparin -) 5,000 unit SQ Q8H-IV [facility] Last Admin: 09/04/19 02:00 Dose: 5,000 unit Insulin Aspart (Novolog Vial Sliding Scale -) 1 vial SQ ACHS [facility]; Protocol Last Admin: 09/04/19 07:18 Dose: Not Given Lisinopril (Prinivil) 20 mg PO DAILY [facility] Last Admin: 09/03/19 09:30 Dose: 20 mg Metoprolol Succinate (Toprol Xl -) 25 mg PO DAILY [facility] Last Admin: 09/03/19 09:31 Dose: 25 mg - Objective Vital Signs: Vital Signs Temperature 98.3 F 09/04/19 06:00 Pulse Rate 63 09/04/19 06:00 Respiratory Rate 18 09/04/19 06:00 Blood Pressure 156/87 09/04/19 06:00 O2 Sat by Pulse Oximetry (%) 100 09/04/19 06:00 Constitutional: Yes: No Distress, Calm Eyes: Yes: Conjunctiva Clear HENT: Yes: Atraumatic Cardiovascular: Yes: Regular Rate and Rhythm Respiratory: Yes: Regular, Cough, Diminished, On Nasal O2 Gastrointestinal: Yes: Normal Bowel Sounds, Soft Musculoskeletal: Yes: WNL Extremities: Yes: WNL Edema: Yes Edema: LLE: 1+, RLE: 1+ Neurological: Yes: Alert, Oriented Psychiatric: Yes: Alert, Oriented Labs: CBC, BMP 09/03/19 07:28 09/03/19 07:28 Problem List - Problems (1) CHF (congestive heart failure) Assessment/Plan: -Cardiology and Pulm on board -Lasix -1L fluid restriction -low Na diet -Echo shows mild MR, mild tricuspid regurg, mod arotic sclerosis, no pericaridal effusion *consider repeat study with contrast as outpatient for better assessment of wall motion and overall LVEF* -Chest CT scan shows moderate bilateral pleural effusion with resultant bibasilar compressive atelectasis, mild concentric subcutaneous soft tissue stranding which may be on basis of fluid retention -BNP 4896.1 Code(s): I50.9 - HEART FAILURE, UNSPECIFIED (2) ESTRADA (dyspnea on exertion) Assessment/Plan: -Pulm on board -Bronchodilators -O2 via NC -keep SpO2 >90% -Chest CT scan shows moderate bilateral pleural effusion with resultant bibasilar compressive atelectasis, mild concentric subcutaneous soft tissue stranding which may be on basis of fluid retention -pre/post O2 sat to assess need for home O2 Code(s): R06.09 - OTHER FORMS OF DYSPNEA (3) Diabetes Assessment/Plan: -BGM ACHS -ISS Code(s): E11.9 - TYPE 2 DIABETES MELLITUS WITHOUT COMPLICATIONS (4) Hyperlipidemia Assessment/Plan: -Atorvastatin Code(s): E78.5 - HYPERLIPIDEMIA, UNSPECIFIED (5) Hypertensive urgency Assessment/Plan: -Cardiology on board -BP trend improving -Lisinopril, Metoprolol -low Na diet Code(s): I16.0 - HYPERTENSIVE URGENCY (6) Pleural effusion Assessment/Plan: -Chest CT scan shows moderate bilateral pleural effusion with resultant bibasilar compressive atelectasis, mild concentric subcutaneous soft tissue stranding which may be on basis of fluid retention -Pulm on board -Lasix -keep SpO2 >90% -O2 via NC Code(s): J90 - PLEURAL EFFUSION, NOT ELSEWHERE CLASSIFIED Assessment/Plan see problem list dvt ppx
[2019-09-04] MEDS: ALBUTEROL SO4 2.5/IPRATROPIUM 0.5 INH SOL 3 ML VIAL.NEB. NEB SCH ×4 (08:30→21:33)
[2019-09-04 09:03] LABS: HEMATOCRIT 35.3 % (35.4-49); HEMOGLOBIN 11.6 GM/dl (11.7-16.9); MCH 31.1 pg (25.7-33.7); MCHC 32.8 g/dl (32.0-35.9); MEAN CELL VOLUME 94.9 fl (80-96); MEAN PLT VOLUME 8.8 fl (7.5-11.1); PLATELET COUNT 229 K/MM3 (134-434); RBC 3.72 M/mm3 (4.00-5.60); RDW 14.9 % (11.9-15.9); WHITE BLOOD COUNT 6.6 K/mm3 (4.0-10.8)
[2019-09-04] MEDS: FUROSEMIDE 40 MG TABLET (FP) PO SCH (09:19)
[2019-09-04] MEDS: LISINOPRIL 20 MG TABLET (FP) PO SCH (09:20)
[2019-09-04] MEDS: metoPROLOL SUCCINATE 25 MG TAB.SR.24H (FP) PO SCH (09:20)
[2019-09-04 09:55] LABS: ALBUMIN 2.9 g/dl (3.4-5.0); BILIRUBIN,TOTAL 0.4 mg/dl (0.2-1); CALCIUM 8.8 mg/dl (8.5-10); CREATININE 1.3 mg/dl (0.55-1.3); POTASSIUM 4.7 mmol/L (3.5-5.1); TOT PROT 6.6 g/dl (6.4-8.2)
[2019-09-04] MEDS: ATORVASTATIN CA 40 MG TABLET (FP) PO SCH (21:35)
[2019-09-05] MEDS: HEPARIN NA (PORCINE) 5,000 UNITS/ML 1ML VIAL SQ SCH ×3 (01:31→18:32)
[2019-09-05] MEDS: INSULIN SLIDING SCALE (NOVOLOG) 1 VIAL SQ SCH ×4 (06:23→21:35)
--- NOTE | 2019-09-05 07:49 | PN ---
Progress Note, Physician - Current Medication List Current Medications: Active Medications Albuterol/Ipratropium (Duoneb -) 1 amp NEB RQID [facility] Last Admin: 09/04/19 21:33 Dose: 1 amp Atorvastatin Calcium (Lipitor -) 40 mg PO HS [facility] Last Admin: 09/04/19 21:35 Dose: 40 mg Furosemide (Lasix -) 40 mg PO DAILY [facility] Last Admin: 09/04/19 09:19 Dose: 40 mg Heparin Sodium (Porcine) (Heparin -) 5,000 unit SQ Q8H-IV [facility] Last Admin: 09/05/19 01:31 Dose: 5,000 unit Insulin Aspart (Novolog Vial Sliding Scale -) 1 vial SQ ACHS [facility]; Protocol Last Admin: 09/05/19 06:23 Dose: Not Given Lisinopril (Prinivil) 20 mg PO DAILY [facility] Last Admin: 09/04/19 09:20 Dose: 20 mg Metoprolol Succinate (Toprol Xl -) 25 mg PO DAILY [facility] Last Admin: 09/04/19 09:20 Dose: 25 mg - Objective Vital Signs: Vital Signs Temperature 97.9 F 09/05/19 06:00 Pulse Rate 60 09/05/19 06:00 Respiratory Rate 17 09/05/19 06:00 Blood Pressure 151/76 09/05/19 06:00 O2 Sat by Pulse Oximetry (%) 92 L 09/05/19 06:00 Cardiovascular: Yes: S1, S2 Respiratory: Yes: Regular, Diminished (at the bases) Edema: No Labs: CBC, BMP 09/04/19 06:30 09/04/19 06:30 Problem List - Problems (1) CHF (congestive heart failure) Code(s): I50.9 - HEART FAILURE, UNSPECIFIED (2) ESTRADA (dyspnea on exertion) Code(s): R06.09 - OTHER FORMS OF DYSPNEA (3) Diabetes Code(s): E11.9 - TYPE 2 DIABETES MELLITUS WITHOUT COMPLICATIONS (4) Hypertensive urgency Code(s): I16.0 - HYPERTENSIVE URGENCY (5) Pleural effusion Code(s): J90 - PLEURAL EFFUSION, NOT ELSEWHERE CLASSIFIED Assessment/Plan - Problems (1) CHF (congestive heart failure) Assessment/Plan: -Cardiology and Pulm on board -Lasix -1L fluid restriction -low Na diet -Echo shows mild MR, mild tricuspid regurg, mod arotic sclerosis, no pericaridal effusion *consider repeat study with contrast as outpatient for better assessment of wall motion and overall LVEF* -Chest CT scan shows moderate bilateral pleural effusion with resultant bibasilar compressive atelectasis, mild concentric subcutaneous soft tissue stranding which may be on basis of fluid retention -BNP 4896.1 Code(s): I50.9 - HEART FAILURE, UNSPECIFIED (2) ESTRADA (dyspnea on exertion) Assessment/Plan: -Pulm on board -Bronchodilators -O2 via NC -keep SpO2 >90% -Chest CT scan shows moderate bilateral pleural effusion with resultant bibasilar compressive atelectasis, mild concentric subcutaneous soft tissue stranding which may be on basis of fluid retention -pre/post O2 sat to assess need for home O2 -Nuclear Stress Test Code(s): R06.09 - OTHER FORMS OF DYSPNEA (3) Diabetes Assessment/Plan: -BGM ACHS -ISS Code(s): E11.9 - TYPE 2 DIABETES MELLITUS WITHOUT COMPLICATIONS (4) Hyperlipidemia Assessment/Plan: -Atorvastatin Code(s): E78.5 - HYPERLIPIDEMIA, UNSPECIFIED (5) Hypertensive urgency Assessment/Plan: -Cardiology on board -BP trend improving -Lisinopril, Metoprolol -low Na diet Code(s): I16.0 - HYPERTENSIVE URGENCY (6) Pleural effusion Assessment/Plan: -Chest CT scan shows moderate bilateral pleural effusion with resultant bibasilar compressive atelectasis, mild concentric subcutaneous soft tissue stranding which may be on basis of fluid retention -Pulm on board -Lasix -keep SpO2 >90% -O2 via NC Code(s): J90 - PLEURAL EFFUSION, NOT ELSEWHERE CLASSIFIED
[2019-09-05] MEDS: ALBUTEROL SO4 2.5/IPRATROPIUM 0.5 INH SOL 3 ML VIAL.NEB. NEB SCH ×4 (08:27→21:34)
[2019-09-05] MEDS ORDERED: REGADENOSON 0.4 MG/5 ML PRE-FILLED SYRINGE IVPUSH ONE ×2 (10:25→10:30)
[2019-09-05] MEDS: metoPROLOL SUCCINATE 25 MG TAB.SR.24H (FP) PO SCH (11:17)
[2019-09-05] MEDS: FUROSEMIDE 40 MG TABLET (FP) PO SCH (11:17)
[2019-09-05] MEDS: LISINOPRIL 20 MG TABLET (FP) PO SCH (11:17)
[2019-09-05] MEDS ORDERED: metoPROLOL SUCCINATE 25 MG TAB.SR.24H (FP) PO ONE (18:16)
[2019-09-05] MEDS: ATORVASTATIN CA 40 MG TABLET (FP) PO SCH (21:35)
[2019-09-06] MEDS: HEPARIN NA (PORCINE) 5,000 UNITS/ML 1ML VIAL SQ SCH ×2 (02:26→09:52)
[2019-09-06 06:24] VITALS: BP 160/91; PULSE 67; TEMP 98.4
[2019-09-06] MEDS: INSULIN SLIDING SCALE (NOVOLOG) 1 VIAL SQ SCH (06:31)
--- NOTE | 2019-09-06 07:27 | DS ---
Physical Examination Vital Signs: Vital Signs Temperature 98.4 F 09/06/19 06:00 Pulse Rate 67 09/06/19 06:00 Respiratory Rate 18 09/06/19 06:00 Blood Pressure 160/91 09/06/19 06:00 O2 Sat by Pulse Oximetry (%) 100 09/06/19 06:00 Cardiovascular: Yes: S1, S2 Respiratory: Yes: Regular, CTA Bilaterally Gastrointestinal: Yes: Normal Bowel Sounds, Soft Labs: CBC, BMP 09/04/19 06:30 09/04/19 06:30 Discharge Summary Problems reviewed: Yes Reason For Visit: DYSPNEA ON EXERTION Current Active Problems CHF (congestive heart failure) (Acute) ESTRADA (dyspnea on exertion) (Acute) Diabetes (Acute) Hyperlipidemia (Acute) Hypertensive urgency (Acute) New onset of congestive heart failure (Acute) Pleural effusion (Acute) ST segment changes on electrocardiogram (Acute) Hospital Course: - Problems (1) CHF (congestive heart failure) Assessment/Plan: -Cardiology and Pulm on board -Lasix--Coreg -1L fluid restriction -low Na diet -Echo shows mild MR, mild tricuspid regurg, mod arotic sclerosis, no pericaridal effusion *consider repeat study with contrast as outpatient for better assessment of wall motion and overall LVEF* -Chest CT scan shows moderate bilateral pleural effusion with resultant bibasilar compressive atelectasis, mild concentric subcutaneous soft tissue stranding which may be on basis of fluid retention -BNP 4896.1 -Nuclear Stress Test--Dilated cardiomyopathy--EF 39% --will need further w/u as outpatient Code(s): I50.9 - HEART FAILURE, UNSPECIFIED (2) ESTRADA (dyspnea on exertion) Assessment/Plan: -Pulm on board -Bronchodilators -O2 via NC -keep SpO2 >90% -Chest CT scan shows moderate bilateral pleural effusion with resultant bibasilar compressive atelectasis, mild concentric subcutaneous soft tissue stranding which may be on basis of fluid retention -pre/post O2 sat to assess need for home O2 -Nuclear Stress Test--Dilated cardiomyopathy--EF 39% --will need further w/u as outpatient Code(s): R06.09 - OTHER FORMS OF DYSPNEA (3) Diabetes Assessment/Plan: -BGM ACHS -ISS Code(s): E11.9 - TYPE 2 DIABETES MELLITUS WITHOUT COMPLICATIONS (4) Hyperlipidemia Assessment/Plan: -Atorvastatin Code(s): E78.5 - HYPERLIPIDEMIA, UNSPECIFIED (5) Hypertensive urgency Assessment/Plan: -Cardiology on board -BP trend improving -Lisinopril, coreg and norvasc -low Na diet Code(s): I16.0 - HYPERTENSIVE URGENCY (6) Pleural effusion Assessment/Plan: -Chest CT scan shows moderate bilateral pleural effusion with resultant bibasilar compressive atelectasis, mild concentric subcutaneous soft tissue stranding which may be on basis of fluid retention -Pulm on board -Lasix -keep SpO2 >90% -O2 via NC Code(s): J90 - PLEURAL EFFUSION, NOT ELSEWHERE CLASSIFIED Results discussed with patient--Etiology of cardiomyopathy to be determined--pt admits to previous use of cocaine--not at this time will need follow up ct of chest DC HOME ONCE CLEARED BY CARDIOLOGY Condition: Improved - Instructions Referrals: Clarissa Madrigal MD [Primary Care Provider] - 1 Week Disposition: HOME - Home Medications Comprehensive Discharge Medication List: Ambulatory Orders Atorvastatin Ca [Lipitor] 40 mg PO DAILY 09/01/19 Albuterol 2.5/Ipratropium 0.5 [Duoneb -] 1 amp NEB RQID #120 amp 09/06/19 Amlodipine Besylate [Norvasc -] 5 mg PO DAILY #30 tablet 09/06/19 Carvedilol [Coreg -] 6.25 mg PO BID #60 tablet 09/06/19 Empagliflozin [Jardiance] 10 mg PO DAILY #30 tablet 09/06/19 Furosemide [Lasix -] 40 mg PO DAILY #30 tablet 09/06/19 Lisinopril [Prinivil] 20 mg PO DAILY #30 tablet 09/06/19
[2019-09-06] MEDS: ALBUTEROL SO4 2.5/IPRATROPIUM 0.5 INH SOL 3 ML VIAL.NEB. NEB SCH (09:00)
[2019-09-06] MEDS: FUROSEMIDE 40 MG TABLET (FP) PO SCH (09:51)
[2019-09-06] MEDS: LISINOPRIL 20 MG TABLET (FP) PO SCH (09:51)
[2019-09-06] MEDS ORDERED: CARVEDILOL 6.25 MG TABLET (FP) PO SCH (10:00)
[2019-09-06] MEDS ORDERED: amLODIPine BESYLATE 5 MG TABLET (FP) PO SCH (10:00)
[2019-09-06] MEDS ORDERED: ASPIRIN COATED 81 MG TABLET.EC PO SCH (10:00)
--- NOTE | 2019-09-06 10:11 | PN ---
Progress Note (short form) - Note Progress Note: 59 year old male with a PMH of smoking (quit a few months ago), HTN, DM, and HLD. For the past several weeks he has been noticing progressive ESTRADA. He has also noticed increasing lower extremity swelling. No chest pain. EKG Sinus bradycardia at 58 BPM with normal intervals, normal axis, and NSSTTW changes Troponin 0.03 x2 Echocardiogam 09/02/19: TDS LV function appears grossly normal Normal right ventricular size and function Mild MR Mild TR 09/02/19 Significantly improving with diuretics CHF Acute on chronic diastolic vs combined systolic/diastolic -Echo 09/02/19 was TDS but showed grossly normal LV systolic function with mild valvular abnl -NST 09/05 showed no ischemia, patchy uptake c/w NICM and an estimated LVEF of 39%. -pt volume status improved with IV Lasix and is now on po Lasix -Discrepancy in LVEF between echo and NST to be re-evaluated as outpatient with repeat Echo -cont current CHF medical regimen with Coreg 6.25mg bid and Lisinopril 20mg daily -cont Lasix 40mg po daily -cont ASA and statin -can cont amlodipine for now for HTN -pt is acceptable for discharge home from a cardiac standpoint on this current regimen -recc close outpatient cardiology follow up for further adjustment in CHF meds and plan for repeat echo
[2019-09-06 12:55] LABS: COCAINE, UR NEGATIVE ng/ml (CUTOFF=300); METHADONE, UR NEGATIVE ng/ml (CUTOFF=300); OPIATES, URI NEGATIVE ng/ml (CUTOFF=300); PHENCYCLIDINE,URINE NEGATIVE ng/ml (CUTOFF=25); URINE AMPHETAMINES NEGATIVE ng/ml (CUTOFF=500); URINE BARBITURATES NEGATIVE ng/ml (CUTOFF=200); URINE BENZODIAZEPINES NEGATIVE ng/ml (CUTOFF=200)
== END 2019-09-06 13:47 | disposition home or self-care (01) | DRG 292 ==
LOC: FER 10:14 → FM/S 16:27
PROVIDERS: ADMIT Family Medicine; ATTEND Family Medicine
DX: I11.0 Hypertensive heart disease with heart failure (principal); J90 Pleural effusion, not elsewhere classified; N17.9 Acute kidney failure, unspecified; J98.11 Atelectasis; R06.02 Shortness of breath; I50.43 Acute on chronic combined systolic (congestive) and diastolic (congestive) heart failure; E78.5 Hyperlipidemia, unspecified; E66.9 Obesity, unspecified; Z68.34 Body mass index [BMI] 34.0-34.9, adult; J44.9 Chronic obstructive pulmonary disease, unspecified; R94.31 Abnormal electrocardiogram [ECG] [EKG]; I42.0 Dilated cardiomyopathy; I16.0 Hypertensive urgency; E11.9 Type 2 diabetes mellitus without complications; G47.33 Obstructive sleep apnea (adult) (pediatric); Z87.891 Personal history of nicotine dependence
CPT/HCPCS: 36415; 71046-TC-FY; 71250-TC; 78452-TC; 80053; 80061; 80307; 81003; 81015; 82550; 82553; 82962; 83036; 83721; 83735; 83880; 84443; 84484; 85025; 85027; 93005; 93017; 93306-TC; 93970-TC; 94640; 99285-25; A9502; J1644; J2785

== ENCOUNTER 2022-07-29 11:19 | Day surgery (SDC) | payer BC ==
[~2022-07-29 11:19] MED LIST: IRON SUCROSE INJECTION 200 MG in SODIUM CHLORIDE 100 ML IVPB ONE
[2022-07-29 14:33] VITALS: RESP 20; TEMP 98.4
[2022-07-29 14:36] VITALS: BP 177/86; PULSE 84
== END 2022-07-29 13:00 | disposition home or self-care (01) ==
LOC: JONCNONCHE 11:19 → J7W 11:20 → JONCNONCHE 13:00
PROVIDERS: ATTEND Internal Medicine Hematology & Oncology
PROC: 3E033GC Introduction of Other Therapeutic Substance into Peripheral Vein, Percutaneous Approach (ICD-10-PCS; principal; 2022-07-29)
DX: D50.9 Iron deficiency anemia, unspecified (principal)
CPT/HCPCS: 96365; J1756

== ENCOUNTER 2022-08-05 15:42 | Day surgery (SDC) | payer BC ==
[2022-08-05 15:49] VITALS: RESP 20; TEMP 97.9
[2022-08-05 15:54] VITALS: BP 150/91; PULSE 79
== END 2022-08-05 15:55 | disposition home or self-care (01) ==
LOC: JONCNONCHE 15:42
PROVIDERS: ATTEND Internal Medicine Hematology & Oncology
PROC: 3E033GC Introduction of Other Therapeutic Substance into Peripheral Vein, Percutaneous Approach (ICD-10-PCS; principal; 2022-08-05)
DX: D50.9 Iron deficiency anemia, unspecified (principal)
CPT/HCPCS: 96365; J1756

== ENCOUNTER 2022-08-12 14:52 | Day surgery (SDC) | payer BC ==
[2022-08-12 14:49] VITALS: BP 143/72; PULSE 68; RESP 20; TEMP 98.1
== END 2022-08-12 15:17 | disposition home or self-care (01) ==
LOC: JONCNONCHE 14:52
PROVIDERS: ATTEND Internal Medicine Hematology & Oncology
PROC: 3E033GC Introduction of Other Therapeutic Substance into Peripheral Vein, Percutaneous Approach (ICD-10-PCS; principal; 2022-08-12)
DX: D50.9 Iron deficiency anemia, unspecified (principal)
CPT/HCPCS: 96365; J1756

== ENCOUNTER 2022-08-19 13:28 | Day surgery (SDC) | payer BC ==
[2022-08-19 17:03] VITALS: BP 159/76; PULSE 70; RESP 20; TEMP 98.6
== END 2022-08-19 17:04 | disposition home or self-care (01) ==
LOC: JONCNONCHE 13:28
PROVIDERS: ATTEND Internal Medicine Hematology & Oncology
PROC: 3E033GC Introduction of Other Therapeutic Substance into Peripheral Vein, Percutaneous Approach (ICD-10-PCS; principal; 2022-08-19)
DX: D50.9 Iron deficiency anemia, unspecified (principal)
CPT/HCPCS: 96365; J1756